=== PATIENT | male | born 1980 ===

== ENCOUNTER 2024-10-13 20:08 | Emergency (ER) | payer OTHER ==
[~2024-10-13] VITALS: Ht 172.7 cm; Wt 108.9 kg
[2024-10-13] MEDS ORDERED: TAPAZOLE5 MG (20:27)
== END 2024-10-13 20:30 | disposition left against medical advice (07) ==
LOC: ER 20:08
DX: Z53.21 Procedure and treatment not carried out due to patient leaving prior to being seen by health care provider (principal)